=== PATIENT | male | born 1935 | race Caucasian/White ===

== ENCOUNTER 2024-12-10 17:24 | Emergency (ER) | payer OTHER ==
[~2024-12-10] VITALS: Ht 162.5 cm; Wt 77.1 kg
[~2024-12-10 17:24] MED LIST: ASPIRIN81 M1 PO; B12 ACTIVE1000 MCG PO; BACTRIM DS 8001 TA1 PO; BACTRIM DS 8001 TAB PO; COLACE 2-IN-11 EACH PO; CRESTOR5 M1 PO; DITROPAN5 MG PO; ENTERIC ASPIRI325 MG PO; FLOMAX0.4 MG PO; LEVOFLOXACIN750 M2 PO; LIPITOR80 MG PO; LOPRESSOR25 MG; MULTI-VITAMIN1 EACH PO; PERCOCET 325 MG1 TA2 PO; PRINIVIL5 MG PO; SIMVASTATIN80 MG PO; TERAZOSIN HCL2 M1 PO; VICO75300 PO; VITAMIN C500 M8 PO; VITAMIN D350 MCG PO; Vit. B650 MG PO
[2024-12-10 19:14] LABS: BASO # 0.0 10*3/uL (0.0-0.1); BASO % 0.7 % (0.0-1.0); EOS # 0.1 10*3/uL (0.0-0.4); EOS % 1.3 % (1.0-4.0); MEAN CELL VOLUME 99.7 fl (80.0-94.0); MEAN CORPUSCULAR HGB 32.2 pg (27.0-31.0); MEAN PLATELET VOLUME 8.2 fl (9.6-12.3); MONO # 0.8 10*3/uL (0.1-1.0); MONO % 13.8 % (3.0-9.0); NEUT # 3.3 10*3/uL (2.3-7.9); NEUT % 54.8 % (47.0-73.0); NUCLEATED RED BLOOD CELL 0.0 % (0.0-0.0); NUCLEATED RED BLOOD CELL 0.0 10*3/uL (0.0-0.0); PLATELET COUNT AUTOMATED 214 10*3/uL (130-400); RED CELL DISTRI WIDTH 12.6 % (0-14.5)
[2024-12-10 19:39] LABS: BUN 13 mg/dl (9-23)
== END 2024-12-10 20:25 | disposition home or self-care (01) ==
LOC: ED 17:24
PROVIDERS: Nurse Practitioner Family
DX: R60.0 Localized edema (principal); M79.605 Pain in left leg; R21 Rash and other nonspecific skin eruption; I25.10 Atherosclerotic heart disease of native coronary artery without angina pectoris; K21.9 Gastro-esophageal reflux disease without esophagitis; J44.9 Chronic obstructive pulmonary disease, unspecified; E78.5 Hyperlipidemia, unspecified; I10 Essential (primary) hypertension; Z85.51 Personal history of malignant neoplasm of bladder; Z79.82 Long term (current) use of aspirin; Z88.0 Allergy status to penicillin; Z79.899 Other long term (current) drug therapy; Z98.890 Other specified postprocedural states; Z95.5 Presence of coronary angioplasty implant and graft

== ENCOUNTER → 2024-12-11 | Outpatient (CLI) | payer MEDICARE | END | disposition home or self-care (01) | LOC: US 11:47 | PROVIDERS: ATTEND Nurse Practitioner Family | DX: I82.492 Acute embolism and thrombosis of other specified deep vein of left lower extremity (principal) ==